=== PATIENT | male | born 1960 | race Caucasian/White ===

== ENCOUNTER 2021-01-14 10:09 | Day surgery (SDC) | payer BC ==
[~2021-01-14] VITALS: Ht 177.8 cm; Wt 81.7 kg
[2021-01-14 10:29] VITALS: BP 139/90
[2021-01-14] MEDS ORDERED: EPINEPHRINE 1 MG/ML, 1ML ONE (10:32)
[2021-01-14] MEDS ORDERED: BUPIVACAINE/PF 0.5% ONE (10:32)
[2021-01-14] MEDS ORDERED: LACTATED RINGERS 1,000 ML IV SCH (11:00)
[2021-01-14] MEDS ORDERED: CHLORHEXIDINE 15 ML UDC PO ONE (11:00)
[2021-01-14] MEDS ORDERED: MIDAZOLAM 1 MG/ML, 2ML ONE (11:03)
[2021-01-14] MEDS ORDERED: FENTANYL PF 250 MCG/5ML ONE (11:03)
[2021-01-14] MEDS ORDERED: OXYC5TAB2 PO (12:04)
[2021-01-14] MEDS ORDERED: MEPERIDINE/PF 25MG/ML,1ML ONE (12:15)
[2021-01-14] MEDS ORDERED: DIAZEPAM 5 MG/ML, 2ML ONE (12:25)
[2021-01-14] MEDS ORDERED: OXYcodone 5 MG/5 ML ORAL.SOL UDC ONE (12:25)
[2021-01-14] MEDS ORDERED: ACETAMINOPHEN 325 MG SUPP ONE (12:26)
[2021-01-14] MEDS ORDERED: ACETAMINOPHEN 650 MG/20.3 ML UDC ONE (12:26)
[2021-01-14] MEDS ORDERED: KETOROLAC 30 MG/1 ML IV PRN (12:30)
[2021-01-14] MEDS ORDERED: FENTANYL PF 100 MCG/2ML IV PRN (12:30)
[2021-01-14] MEDS ORDERED: MEPERIDINE/PF 25MG/0.5ML IVPush PRN (12:30)
[2021-01-14] MEDS ORDERED: ALBUTEROL SULFATE 2.5 MG/3 ML NPPB PRN (12:30)
[2021-01-14] MEDS ORDERED: METOCLOPRAMIDE 5 MG/ML, 2ML IV PRN (12:30)
[2021-01-14] MEDS ORDERED: PROMETHAZINE 25 MG/ML, 1ML IV PRN (12:30)
[2021-01-14] MEDS ORDERED: HYDROmorphone 1 MG/ML, 1ML INJ IV PRN (12:30)
[2021-01-14] MEDS ORDERED: hydrALAzine 20 MG/ML, 1ML IV PRN (12:30)
[2021-01-14] MEDS ORDERED: DIAZEPAM 5 MG/ML, 2ML IV PRN ×2 (12:30)
[2021-01-14] MEDS ORDERED: ONDANSETRON 2MG/ML, 2ML IVPush PRN (12:30)
[2021-01-14] MEDS ORDERED: LABETALOL 5MG/ML, 20ML IV PRN (12:30)
[2021-01-14] MEDS ORDERED: OXYcodone 5 MG/5 ML ORAL.SOL UDC PO PRN (12:30)
[2021-01-14] MEDS ORDERED: KETOROLAC 30 MG/1 ML ONE (12:39)
[2021-01-14] MEDS ORDERED: ACETAMINOPHEN 650 MG/20.3 ML UDC PO PRN (13:00)
[2021-01-14] MEDS ORDERED: PROPOFOL 10 MG/ML, 20ML ONE (16:25)
[2021-01-14] MEDS ORDERED: ONDANSETRON 2MG/ML, 2ML ONE (16:25)
[2021-01-14] MEDS ORDERED: SUCCINYLCHOLINE 20 MG/ML, 10ML ONE (16:25)
[2021-01-14] MEDS ORDERED: CEFAZOLIN 1,000 MG ONE (16:25)
[2021-01-14] MEDS ORDERED: DEXAMETHASONE 4 MG/ML, 1ML ONE (16:25)
[2021-01-14] MEDS ORDERED: ROCURONIUM 10MG/ML,5ML ONE (16:25)
== END 2021-01-14 15:30 | disposition home or self-care (01) ==
LOC: OUT 10:09
PROVIDERS: ATTEND Surgery
DX: K40.20 Bilateral inguinal hernia, without obstruction or gangrene, not specified as recurrent (principal); D17.6 Benign lipomatous neoplasm of spermatic cord; Z20.822 Contact with and (suspected) exposure to COVID-19; Z79.899 Other long term (current) drug therapy
CPT/HCPCS: 49650; C1781; J0171; J0330; J0690; J1100; J1885; J2175; J2250; J2405; J2704; J3010; J3360; J7120; S2900; U0003; U0005